=== PATIENT | male | born 1975 | race Caucasian/White ===

== ENCOUNTER 2024-10-28 17:13 | Emergency (ER) | payer MEDICAID, SELFPAY ==
--- OUTSIDE RECORDS SUMMARY | 2024-06-22 04:40 | XMS_ITS | Continuity of Care Document ---
Author Organization [facility] Address [address] [place] [address] Phone Care Team Providers Care Blender Name Role Phone Arely Quevedo Unavailable Unavailable Allergies, Adverse Reactions, Alerts Substance Reaction Status Criticality No Known Allergies Active No Inform ation Medications Medication Instructions Dosage Effective Dates (start - stop) Status Comments albuterol sulfate HFA 90 mcg/actuation aerosol inhaler inhale 2 puff by inhalation route every 4 - 6 hours as needed as needed 180 MCG - Active Augmentin 500 mg-125 mg tablet take 1 tablet by oral route every 12 hours 1.00 tablet - Active diclofenac potassium 25 mg tablet take 2 tablet by oral route 3 times every day 50 MG - Active Flonase Allergy Relief 50 mcg/actuation nasal spray,suspension spray 1 - 2 spray by intranasal route every day in each nostril as needed 50-100 MCG - Active nicotine (polacrilex) 2 mg buccal mini lozenge use as directed - Active Symbicort 80 mcg-4.5 mcg/actuation HFA aerosol inhaler inhale 2 puff by inhalation route 2 times every day in the morning and evening 2.00 puff - Active lidocaine 4 % topical patch apply 1 patch by topical route every day for 15 days 1 patch - No Longer Active Advance Directives Directive Yes / No Effective Date File Name Other Directive No N/A N/A WARNING:The information contained in this section is historical and is provided for information only and does not constitute a legal document or any assurance that the information is still accurate. Please verify the information with the odell of the legal document before using it for clinical purposes. Encounters Encounter Description Practice Location Reason(s) For Visit Diagnoses Date Provider Providers Copied on Encounter [facility], [address] [place] [address], [id number], [place] tel:[phone] [address] [place] [address] Michellejohnna ASA (chief complaint) Body mass index [BMI] 27.0-27.9, adultTobacco useCOPDAcute frontal sinusitis, unspecifiedAmp hetamine or other stimulant withdrawalBack painOther seasonal allergic rhinitis Anne Marie Mcgee. [address] [place] [address], [id number] [address] [place] [address], [id number] , . tel:[phone] Referring Provider: Arely Kenney, [address] [place] [address] [id number] [place] [address], [id number] . tel:[phone] Family History Family Member Type Diagnosis Age At Onset No Information Payers Payer name Insurance type Covered constitution party ID Authoriza tilonnie(s) [employer] CI [id number] Social History Type Description Quantity Date Captured Comments Alcohol Use Details Unknown Caffeine Use Details Unknown Tobacco Use Status Heavy cigarette smok er (20-39 cigs/day) Smoking Status Heavy tobacco smoker Smoking Tobacco Use Details Cigarette: No Details Available Cigarette: 1 Packs per day Sex Male Gender Identity Male Vital Signs Date / Time: Height Weight BMI Pulse Rate Blood Pressure Temperature Respiratory Rate Body Surface Area Head Circumference Head Circ. Percentile Wt./Joshua. Percentile BMI percentile Pulse Ox Inhaled Ox 9:14 AM 72.00 in 90.718 kg (200.00 lbs) 27.1 2 kg/m eter (2) 95 /min 149/87 mm[Hg] 96.60 F 20 /min 2.15 meter(2) 98 % 3:41 PM 129/85 mm[Hg] Chief Complaint And Reason For Visit From encounter dated 06/22/2024 09:40'. ASAM (chief complaint). Description: [facility] [facility] and admitted hx of smoking meth really tired and sleeping last couple daysDaily medications: denies Chronic physical disease: deniesAcute concerns: back pain, lower, chronicwakes up in the morning and trouble with movement able to take NSAIDbaclofen muscle relaxor at nightsmoked cigaerette and coffee before with higher BPPCP: has had high blood pressure in past 129/85 on repeatreports allergy symptoms, reports when laying down rattles in chest and lungsmucous+no fever or chillshistory of sinus infections- last time antibiotic couple years, pressure to sinus and concern for bacterial sinusitis need inhaler and steroid inhaler for wheezing Reason For Referral Reason For Referral No Information Plan Of Treatment Date Type Action Status Goal Depression screening. Due on due Goal Tobacco screening. Due on due Goal Diabetes screening. Due on due Goal BMI Adult Follow-Up. Due on due Goal Hematocrit. Due on due Goal BMI. Due on due Goal Influenza vaccine. Due on due Goal Dietary management education , guidance, and counseling completed Goal Tobacco cessation counseling completed History Of Present Illness Encounter Date Complaint History Of Prese nt Illness ASAM Patient presents to for ASAM 3.5 physical at [facility] use 4 days ago and admitted hx of smoking meth really tired and sleeping last couple daysDaily medications: denies Chronic physical disease: deniesAcute concerns: back pain, lower, chronicwakes up in the morning and trouble with movement able to take NSAIDbaclofen muscle relaxor at nightsmoked cigaerette and coffee before with higher BPPCP: has had high blood pressure in past 129/85 on repeatreports allergy symptoms, reports when laying down rattles in chest and lungsmucous+no fever or chillshistory of sinus infections- last time antibiotic couple years, pressure to sinus and concern for bacterial sinusitis need inhaler and steroid inhaler for wheezing Functional Status Date Functional Assessmen t Pain Score 5/10 Instructions Date Instruction Additional Infor mation diclogenac and lidoc alyson patches, supportive care, no acute symptoms Related to Back pain rx for flonase Related to Other seasonal allergic rhinitis augmentin, flonase a nd allergy medication Related to Acute frontal sinusitis, unspecified Patient to continue with ASAM 3.5 plan. Please refer to this in [facility]. Reviewed in detail provider intake note for [facility], Patient is able to meet ADLs and self care. No emergent health issues. Patient is medically cleared for ASAM. Will follow care plan in ASAM. Related to Amphetamine or other stimulant withdrawal albuterol prn nd symbicort bid R elated to COPD Giving encouragement to exercise Related to Body mass index [BMI] 27.0-27.9, adult Dietary management e ducation, guidance, and counseling Related to Body mass index [BMI] 27.0-27.9, adult Assessments Type Assessment Date assessment Body mass index [BMI] 27.0-27.9, adult assessment Tobacco use assessment COPD assessment Acute frontal sinusitis, unspeci fied assessment Amphetamine or other stimulant w ithdrawal assessment Back pain assessment Other seasonal allergic rhinitis Mental Status Date Cognitive Assessment Orientation - [place] ed to time, place, person, situation. Patient Care Teams Name Effective Dates (start - stop) Status Members No Information
[2024-10-28] VITALS (9 sets, daily range): BP systolic 116–142; BP diastolic 79–97; PULSE 73–91; RESP 12–18; TEMP 36.8; O2SAT 96–100
--- NOTE | ~2024-10-28 | XR_ITS ---
Examination: XR chest 1V portable Clinical History: Drug overdose Comparison: None Technique: Portable AP Findings: Heart size normal. Lungs clear. No acute bony abnormality. IMPRESSION: 1. No acute cardiopulmonary findings given portable technique. Reviewed, dictated and finalized at location R.
--- NOTE | 2024-10-28 17:26 | ED.GENADULT ---
HPI - General Adult General Chief complaint: Altered Mental Status <Roberto Hanna MD - Last Filed: 10/28/24 22:11> Stated complaint: unresponsive? <Roberto Hanna MD - Last Filed: 10/28/24 22:11> Time Seen by Provider: 10/28/24 17:23 <Roberto Hanna MD - Last Filed: 10/28/24 22:11> Source: patient <Roberto Hanna MD - Last Filed: 10/28/24 22:11> Mode of arrival: ambulatory <Roberto Hanna MD - Last Filed: 10/28/24 22:11> Limitations: clinical condition <Roberto Hanna MD - Last Filed: 10/28/24 22:11> History of Present Illness HPI narrative: 49 years old white male dropped of to our emergency room by somebody. Patient is lethargic, unable to tell what is going on, I was able to know that the patient had overdose of heroin and meth prior to arrival. Patient is not sure if somebody given Narcan or not unable to answer questions, oriented to his name and age otherwise mumbling unable to understand <Roberto Hanna MD - Last Filed: 10/28/24 22:11> Related Data Allergies/adverse reactions: Allergies Allergy/AdvReac Type Severity Reaction Status Date / Time No Known Allergies Allergy Verified 10/28/24 17:50 <Roberto Hanna MD - Last Filed: 10/28/24 22:11> Review of Systems Review of Systems: All systems reviewed & are unremarkable except as noted in HPI and below <Roberto Hanna MD - Last Filed: 10/28/24 22:11> Exam Narrative: General appearance: Well-developed, well-nourished Skin: , diaphoretic, pale Head: Normocephalic, nontraumatic Eyes: Clear conjunctiva dilated pupils bilaterally unable to tolerate light ENT: Oropharynx normal, ears normal, nose normal Neck: Supple, nontender Chest and respiratory: Airway patent, no respiratory distress, no accessory muscle use Heart: Regular rate/rhythm Abdomen: Soft, nontender, no organomegaly, quiet bowel sounds Vascular: Normal peripheral pulses, normal capillary refill. Neurologic: Sleepy, oriented to his name and age otherwise mumbling <Roberto Hanna MD - Last Filed: 10/28/24 22:11> Course Reevaluation(s) Reevaluation #1: Patient is now awake, alert, walking around, he is upset to be here, he does not know what happened. I did explain him that he came in after likely overdosing on drugs, he is asking for something to eat. At this point I do feel he is stable for discharge with instructions to stop using drugs and follow up with his doctor, return for any further issues. <Shyanne Fair MD - Last Filed: 10/29/24 01:14> Vital Signs Vital signs: Vital Signs Temperature 98.2 F 10/28/24 17:25 Pulse Rate 91 10/28/24 17:25 Respiratory Rate 18 10/28/24 17:25 Blood Pressure 142/91 H 10/28/24 17:25 Pulse Oximetry 98 10/28/24 17:25 Oxygen Delivery Room Air 10/28/24 17:25 Temperature 98.2 F 10/28/24 17:25 Pulse Rate 79 10/28/24 21:00 Respiratory Rate 13 10/28/24 21:00 Blood Pressure 132/83 10/28/24 21:00 Pulse Oximetry 98 10/28/24 21:00 Oxygen Delivery Room Air 10/28/24 17:45 <Roberto Hanna MD - Last Filed: 10/28/24 22:11> Vital Signs Temperature 98.2 F 10/28/24 17:25 Pulse Rate 91 10/28/24 17:25 Respiratory Rate 18 10/28/24 17:25 Blood Pressure 142/91 H 10/28/24 17:25 Pulse Oximetry 98 10/28/24 17:25 Oxygen Delivery Room Air 10/28/24 17:25 Temperature 98.2 F 10/28/24 17:25 Pulse Rate 79 10/28/24 21:00 Respiratory Rate 13 10/28/24 21:00 Blood Pressure 132/83 10/28/24 21:00 Pulse Oximetry 98 10/28/24 21:00 Oxygen Delivery Room Air 10/28/24 17:45 <Shyanne Fair MD - Last Filed: 10/29/24 01:14> Medical Decision Making MDM Narrative Medical decision making narrative: Patient came to the ED with questionable heroin and meth overdose. Vital signs are stable Physical examination showing lethargic, slowly answering questions, oriented to his name and age otherwise mumbling Differential diagnosis drug overdose Blood workup today includes CBC, CMP, CPK, PT PTT showed no significant abnormality Urine drug screen showed Chest x-ray showed no acute abnormality PATIENT CAN GO HOME ONCE BECOME MORE AWAKE, ALERT AND ABLE TO MANAGE TO WALK WITHOUT SCREW SUPERVISOR. PATIENT CARE TURNED OVER TO DR. MCCARTY AT [facility], AWAITING , DISPOSITION. PATIENT BEEN RESTING QUIETLY IN THE EMERGENCY ROOM WITHOUT ANY ISSUES OR PROBLEMS. <Roberto Hnana MD - Last Filed: 10/28/24 22:11> Differential Diagnosis Differential Diagnosis: As above <Roberto Hanna MD - Last Filed: 10/28/24 22:11> Vital Signs Vital Signs: Vital Signs Temperature 98.2 F 10/28/24 17:25 Pulse Rate 91 10/28/24 17:25 Respiratory Rate 18 10/28/24 17:25 Blood Pressure 142/91 H 10/28/24 17:25 Pulse Oximetry 98 10/28/24 17:25 Oxygen Delivery Room Air 10/28/24 17:25 Temperature 98.2 F 10/28/24 17:25 Pulse Rate 79 10/28/24 21:00 Respiratory Rate 13 10/28/24 21:00 Blood Pressure 132/83 10/28/24 21:00 Pulse Oximetry 98 10/28/24 21:00 Oxygen Delivery Room Air 10/28/24 17:45 <Roberto Hanna MD - Last Filed: 10/28/24 22:11> Vital Signs Temperature 98.2 F 10/28/24 17:25 Pulse Rate 91 10/28/24 17:25 Respiratory Rate 18 10/28/24 17:25 Blood Pressure 142/91 H 10/28/24 17:25 Pulse Oximetry 98 10/28/24 17:25 Oxygen Delivery Room Air 10/28/24 17:25 Temperature 98.2 F 10/28/24 17:25 Pulse Rate 79 10/28/24 21:00 Respiratory Rate 13 10/28/24 21:00 Blood Pressure 132/83 10/28/24 21:00 Pulse Oximetry 98 10/28/24 21:00 Oxygen Delivery Room Air 10/28/24 17:45 <Shyanne Fair MD - Last Filed: 10/29/24 01:14> Lab Data Result diagrams: 10/28/24 17:48 10/28/24 17:48 <Roberto Hanna MD - Last Filed: 10/28/24 22:11> Labs: Lab Results 10/28/24 10/28/24 Range/Units 17:48 21:25 WBC 7.2 (4.5-10.0) K/mm3 RBC 5.02 (4.6-6.20) M/mm3 Hgb 15.0 (14.0-18.0) g/dL Hct 44.3 (42.0-52.0) % MCV 88.2 (80-100) fl MCH 29.9 (26-34) pg MCHC 33.9 (32-36) g/dl RDW 12.5 (11.5-14.5) % Plt Count 265 (150-375) k/mm3 MPV 9.5 (7.4-10.4) fl Immature Gran % (Auto) 0.4 (0-0.5) % Neut % (Auto) 63.9 (45.5-73.1) % Lymph % (Auto) 20.4 (18.3-44.2) % [place] % (Auto) 5.6 (2.6-8.5) % Eos % (Auto) 8.4 H (0-4.4) % Baso % (Auto) 1.3 H (0.2-1.2) % Lymph # (Auto) 1.46 (0.9-3.2) K/mm3 [place] # (Auto) 0.4 (0.1-0.6) K/mm3 Eos # (Auto) 0.6 H (0-0.3) K/mm3 Baso # (Auto) 0.1 (0.0-0.1) K/mm3 Abs Immat Gran (auto) 0.03 (0.00-0.031) K/mm3 Absolute Neuts (auto) 4.6 (1.3-6.7) K/mm3 Absolute Nucleated RBC 0.000 (0.0-0.012) K/mm3 Nucleated RBC % 0.0 (0.0-0.2) % Sodium 138 (137-145) mmol/L Potassium 3.7 (3.4-5.0) mmol/L Chloride 107 (98-107) mmol/L Carbon Dioxide 23 (22-30) mmol/L Anion Gap 8 (4-12) mmol/L BUN 8 L (9-20) mg/dL Creatinine 0.99 (0.7-1.3) mg/dL Estim Creat Clear Calc 84 ml/min Estimated GFR > 60 (59 - ) Glucose 127 H (65-110) mg/dL Calcium 8.8 (8.4-10.2) mg/dL Total Bilirubin 0.6 (0.2-1.3) mg/dL AST 28 (17-59) U/L ALT 21 (6-50) U/L Alkaline Phosphatase 80 (38-126) U/L Total Creatine Kinase 198 H (55-170) U/L Total Protein 7.2 (6.3-8.2) g/dL Albumin 4.3 (3.5-5.1) g/dL Urine Color Yellow (Yellow) Urine Appearance Clear (Clear) Urine pH 7.0 (5.0-9.0) Ur Specific [place] 1.014 (1.001-1.035) Urine Protein Negative (Negative) mg/dL Urine Glucose (UA) Negative (Negative) mg/dL Urine Ketones Negative (Negative) mg/dL Ur Blood (Man) Negative (Negative) Urine Nitrate Negative (Negative) Urine Bilirubin Negative (Negative) Urine Urobilinogen 1.0 (<2.0) mg/dL Add Ur Microanalysis Reviewed Leukocyte Esterase Rfl Trace H (Negative) SHERIF/UL Urine RBC 0-2 (0-2) /hpf Urine WBC 0-5 (0-3) /hpf Ur Squamous Epith Cells None seen (Few) /hpf Urine Bacteria None seen /hpf Urine Casts 0-2 Salicylates < 1.0 L (2-20) mg/dL Urine Opiates Screen Negative (Negative) Urine Methadone Screen Negative (Negative) Ur Barbiturates Screen Negative (Negative) Ur Phencyclidine Scrn Negative (Negative) Ur Amphetamine Screen Positive A (Negative) U Benzodiazepines Scrn Negative (Negative) Urine Cocaine Screen Positive A (Negative) U Cannabinoids Screen Positive A (Negative) Ethyl Alcohol < 10 (<10) mg/dL <Roberto Hanna MD - Last Filed: 10/28/24 22:11> Lab Results 10/28/24 10/28/24 Range/Units 17:48 21:25 WBC 7.2 (4.5-10.0) K/mm3 RBC 5.02 (4.6-6.20) M/mm3 Hgb 15.0 (14.0-18.0) g/dL Hct 44.3 (42.0-52.0) % MCV 88.2 (80-100) fl MCH 29.9 (26-34) pg MCHC 33.9 (32-36) g/dl RDW 12.5 (11.5-14.5) % Plt Count 265 (150-375) k/mm3 MPV 9.5 (7.4-10.4) fl Immature Gran % (Auto) 0.4 (0-0.5) % Neut % (Auto) 63.9 (45.5-73.1) % Lymph % (Auto) 20.4 (18.3-44.2) % [place] % (Auto) 5.6 (2.6-8.5) % Eos % (Auto) 8.4 H (0-4.4) % Baso % (Auto) 1.3 H (0.2-1.2) % Lymph # (Auto) 1.46 (0.9-3.2) K/mm3 [place] # (Auto) 0.4 (0.1-0.6) K/mm3 Eos # (Auto) 0.6 H (0-0.3) K/mm3 Baso # (Auto) 0.1 (0.0-0.1) K/mm3 Abs Immat Gran (auto) 0.03 (0.00-0.031) K/mm3 Absolute Neuts (auto) 4.6 (1.3-6.7) K/mm3 Absolute Nucleated RBC 0.000 (0.0-0.012) K/mm3 Nucleated RBC % 0.0 (0.0-0.2) % Sodium 138 (137-145) mmol/L Potassium 3.7 (3.4-5.0) mmol/L Chloride 107 (98-107) mmol/L Carbon Dioxide 23 (22-30) mmol/L Anion Gap 8 (4-12) mmol/L BUN 8 L (9-20) mg/dL Creatinine 0.99 (0.7-1.3) mg/dL Estim Creat Clear Calc 84 ml/min Estimated GFR > 60 (59 - ) Glucose 127 H (65-110) mg/dL Calcium 8.8 (8.4-10.2) mg/dL Total Bilirubin 0.6 (0.2-1.3) mg/dL AST 28 (17-59) U/L ALT 21 (6-50) U/L Alkaline Phosphatase 80 (38-126) U/L Total Creatine Kinase 198 H (55-170) U/L Total Protein 7.2 (6.3-8.2) g/dL Albumin 4.3 (3.5-5.1) g/dL Urine Color Yellow (Yellow) Urine Appearance Clear (Clear) Urine pH 7.0 (5.0-9.0) Ur Specific [place] 1.014 (1.001-1.035) Urine Protein Negative (Negative) mg/dL Urine Glucose (UA) Negative (Negative) mg/dL Urine Ketones Negative (Negative) mg/dL Ur Blood (Man) Negative (Negative) Urine Nitrate Negative (Negative) Urine Bilirubin Negative (Negative) Urine Urobilinogen 1.0 (<2.0) mg/dL Add Ur Microanalysis Reviewed Leukocyte Esterase Rfl Trace H (Negative) SHERIF/UL Urine RBC 0-2 (0-2) /hpf Urine WBC 0-5 (0-3) /hpf Ur Squamous Epith Cells None seen (Few) /hpf Urine Bacteria None seen /hpf Urine Casts 0-2 Salicylates < 1.0 L (2-20) mg/dL Urine Opiates Screen Negative (Negative) Urine Methadone Screen Negative (Negative) Ur Barbiturates Screen Negative (Negative) Ur Phencyclidine Scrn Negative (Negative) Ur Amphetamine Screen Positive A (Negative) U Benzodiazepines Scrn Negative (Negative) Urine Cocaine Screen Positive A (Negative) U Cannabinoids Screen Positive A (Negative) Ethyl Alcohol < 10 (<10) mg/dL <Shyanne Fair MD - Last Filed: 10/29/24 01:14> Imaging Data Radiologist's impression: Impressions Chest X-Ray 10/28/24 18:07 IMPRESSION: 1. No acute cardiopulmonary findings given portable technique. <Roberto Hanna MD - Last Filed: 10/28/24 22:11> ECG Data EKG #1: Attestation: I personally reviewed and interpreted this ECG as follows: <Roberto Hanna MD - Last Filed: 10/28/24 22:11> ECG completion date: 10/28/24 <Roberto Hanna MD - Last Filed: 10/28/24 22:11> Interpretation: Normal sinus rhythm at 82 beats per minute, no previous EKG available for comparison, normal EKG <Roberto Hanna MD - Last Filed: 10/28/24 22:11> Discharge Plan Discharge Clinical Impression: Polydrug abuse <Roberto Hanna MD - Last Filed: 10/28/24 22:11> Patient Disposition: Home <Roberto Hanna MD - Last Filed: 10/28/24 22:11> Condition: Stable <Roberto Hanna MD - Last Filed: 10/28/24 22:11> Instructions: Polysubstance Use Disorder (ED) <Roberto Hanna MD - Last Filed: 10/28/24 22:11> Additional Instructions: RETURN IF SYMPTOMS ARE WORSENING , CALL YOUR FAMILY PHYSICIAN FOR APPOINTMENT, TAKE TYLENOL NEEDED FOR ACHES AND PAIN, CONTINUE HOME MEDICATIONS. Please stop using illicit drugs. <Roberto Hanna MD - Last Filed: 10/28/24 22:11> Patient Language: Moroccan <Roberto Hanna MD - Last Filed: 10/28/24 22:11> Follow-up/Referrals: PHYSICIAN,INTERNET SECURITY SPECIALIST [Primary Care Provider, Internal Medicine] Glynn Albert MD [Physician, Family Practice] - 10/31/24 <Roberto Hanna MD - Last Filed: 10/28/24 22:11>
--- NOTE | 2024-10-28 17:37 | ECG_ITS ---
Test Date: 2024-10-28 17:56:55 Measurements Intervals [place] Rate: 82 P: 53 AL: 161 QRS: 52 QRSD: 93 T: 25 QT: 351 QTc: 411 Interpretive Statements SINUS RHYTHM NORMAL ELECTROCARDIOGRAM No previous ECG available for comparison Electronically Signed On 10-29-2024 08:36:02 CDT by Tommy Nelson M.D.
[2024-10-28] MEDS: SODIUM CHLORIDE 0.9% IV 1,000 ML 999 ML IV CONT ×2 (18:00→18:37)
[2024-10-28] MEDS: NALOXONE HCL 0.4 MG/ML VIAL IV PUSH ×4 (18:00→18:37)
[2024-10-28 18:04] LABS: Hematocrit 44.3 % (42.0-52.0); Hemoglobin 15.0 g/dL (14.0-18.0); Immature Granulocyte Percent A 0.4 % (0-0.5); Lymphocytes Absolute Auto 1.46 K/mm3 (0.9-3.2); Mean Corpuscular HGB Conc 33.9 g/dl (32-36); Mean Corpuscular Hemoglobin 29.9 pg (26-34); Mean Corpuscular Volume 88.2 fl (80-100); Nucleated Red Blood Cells Absolute Auto 0.000 K/mm3 (0.0-0.012); Nucleated Red Blood Cells Perc 0.0 % (0.0-0.2); Platelet Count Result 265 k/mm3 (150-375); Red Blood Count 5.02 M/mm3 (4.6-6.20); White Blood Count 7.2 K/mm3 (4.5-10.0)
[2024-10-28 18:09] LABS: Salicylate < 1.0 mg/dL (2-20)
[2024-10-28] MEDS: Please add drug allergy info to patient profile. 1 EACH XX (18:10)
[2024-10-28 18:21] LABS: Alanine Aminotransferase 21 U/L (6-50); Albumin Level 4.3 g/dL (3.5-5.1); Alkaline Phosphatase 80 U/L (38-126); Anion Gap 8 mmol/L (4-12); Aspartate Amino Transferase 28 U/L (17-59); Bilirubin,Total 0.6 mg/dL (0.2-1.3); Blood Urea Nitrogen 8 mg/dL (9-20); Calcium 8.8 mg/dL (8.4-10.2); Carbon Dioxide 23 mmol/L (22-30); Chloride 107 mmol/L (98-107); Creatine Kinase 198 U/L (55-170); Estimated CRCL calculation 84 ml/min; Estimated Glomerular Filt Rate > 60; Glucose 127 mg/dL (65-110); Potassium 3.7 mmol/L (3.4-5.0); Sodium 138 mmol/L (137-145); Total Protein 7.2 g/dL (6.3-8.2)
--- NOTE | 2024-10-28 18:28 | PC.NURSE ---
Pupils were dilated 7mm-after Narcan 0.4 x 3 they are approx 5-6mm. Still confused of where he is or what actually happened. Able to get him to answer some questions with repeated questioning. Dr Hanna made aware
[2024-10-28 21:48] LABS: Add Urine Microscopic? YES; Appearance Urine Clear (Clear); Glucose Urine UA Negative (Negative); Leukocyte Esterase Ur Trace LEU/UL (Negative); Need Manual Microscopic Reviewed; Nitrate Urine Negative (Negative); Non Pathogenic Casts 0-2; Specific Grav Ur 1.014 (1.001-1.035)
[2024-10-28 21:56] LABS: Cannabinoid Screen Urine Positive (Negative)
[2024-10-29 01:28] VITALS: BP 118/78; PULSE 81; RESP 18; O2SAT 99
== END 2024-10-29 01:29 | disposition home or self-care (01) ==
PROVIDERS: Emergency Medicine; Emergency Provider Emergency Medicine
DX: F11.10 Opioid abuse, uncomplicated (principal); F15.10 Other stimulant abuse, uncomplicated
CPT/HCPCS: 36415; 71045; 80053; 80179; 80307; 81001; 82077; 82550; 85025; 93005; 96361; 96374; 96376; 99284; J2312; J7030